=== PATIENT | female | born 1955 | race Caucasian/White ===

== ENCOUNTER 2020-05-30 14:08 | Emergency (ER) | payer MEDICARE ==
[2020-05-30 14:51] LABS: CHLORIDE,CL 107 mmol/L (98-107); SODIUM,NA 144 mmol/L (136-145)
[2020-05-30] MEDS ORDERED: Ondansetron 4 MG Tab.DIS PO ONE (15:09)
[2020-05-30] MEDS ORDERED: Pantoprazole 40 MG Tab.CR PO ONE (15:09)
[2020-05-30] MEDS ORDERED: LORazepam 0.5 MG Tab PO ONE (15:09)
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
== END 2020-05-30 16:05 | disposition home or self-care (01) ==
LOC: LL.ED 14:08
DX: R11.2 Nausea with vomiting, unspecified (principal); M41.9 Scoliosis, unspecified; F17.210 Nicotine dependence, cigarettes, uncomplicated
CPT/HCPCS: 36415; 74022; 80053; 81001; 82150; 83605; 83690; 83735; 84484; 85025; 99283; 99284; A9270-GY

== ENCOUNTER 2020-12-14 09:49 | Day surgery (SDC) | payer MEDICARE ==
[~2020-12-14 09:49] MED LIST: Sodium Chloride 0.9% 10 ML Syringe FLUSH PRN
[2020-12-14] MEDS: Lactated Ringers 1,000 ML IV SCH (10:34)
[2020-12-14] MEDS ORDERED: Midazolam 1 MG/ML 2 ML SDV ONE ×2 (10:44→11:37)
[2020-12-14] MEDS ORDERED: Propofol 200 MG/20 ML SDV ONE ×2 (10:44→11:37)
--- NOTE | 2020-12-14 11:28 | PCM.PN ---
- General Info Date of Service: 12/14/20 - Review of Systems Systems Review Comment:: 65-year-old female referred by Sheba Glez for colonoscopy. Patient has never had a prior colonoscopy. She did recently have a positive Cologuard test. She denies any recent change in bowel pattern. She is medically stable to proceed today. Her recent history and physical is reviewed and no significant changes are noted. I have discussed the proposed colonoscopy with the patient. Risks such as but not limited to bleeding and GI injury reviewed. She agrees to proceed. - Patient Data Vitals - Most Recent: Last Vital Signs Temp 98.1 F 12/14/20 10:34 Pulse 79 12/14/20 10:34 Resp 18 12/14/20 10:34 BP 111/60 12/14/20 10:34 Pulse Ox 98 12/14/20 10:34 Weight - Most Recent: 76.204 kg Med Orders - Current: Current Medications Lactated Ringer's (Ringers, Lactated) 1,000 mls @ 125 mls/hr IV ASDIRECTED KELSEY Last Admin: 12/14/20 10:34 Dose: 125 mls/hr Documented by: Sodium Chloride (Saline Flush) 10 ml FLUSH ASDIRECTED PRN PRN Reason: Keep Vein Open Discontinued Medications Midazolam HCl (Versed 1 Mg/Ml) Confirm Administered Dose 2 mg .ROUTE .STK-MED ONE Stop: 12/14/20 10:45 Propofol (Diprivan 20 Ml) Confirm Administered Dose 400 mg .ROUTE .STK-MED ONE Stop: 12/14/20 10:45 Sepsis Event Note - Focused Exam Vital Signs: Vital Signs Temp Pulse Resp BP Pulse Ox 12/14/20 10:34 98.1 F 79 18 111/60 98 - Problem List Review Problem List Initiated/Reviewed/Updated: Yes - My Orders Last 24 Hours: My Active Orders 12/14/20 09:45 Patient Status [ADT] Routine Peripheral IV Care [RC] . DIRECTED Verify Patient Consent Obtain [RC] ASDIRECTED Lactated Ringers [Ringers, Lactated] 1,000 ml IV ASDIRECTED Sodium Chloride 0.9% [Saline Flush] 10 ml FLUSH ASDIRECTED PRN Peripheral IV Insertion Adult [OM.PC] Routine - Assessment Assessment:: Positive Cologuard test - Plan Plan:: Colonoscopy
--- NOTE | 2020-12-14 12:23 | PCM.OPNOTE ---
- General Post-Op/Procedure Note Date of Surgery/Procedure: 12/14/20 Operative Procedure(s): Colonoscopy with polypectomy Findings: Rectal polyps Moderate sigmoid Diverticulosis Small external hemorrhoids Pre Op Diagnosis: Positive Cologuard Post-Op Diagnosis: Rectal Polps. Sigmoid Diverticulosis. Hemorroids Anesthesia Technique: MAC Primary Surgeon: Artie Cifuentes Pathology: Rectal Polyp EBL in mLs: 0 Complications: None Condition: Good
--- NOTE | 2020-12-14 14:15 | OR ---
Date of Procedure: 12/14/2020 PREOPERATIVE DIAGNOSIS: Positive Cologuard. POSTOPERATIVE DIAGNOSES: Rectal polyps, sigmoid diverticulosis, and hemorrhoids. OPERATIONS PERFORMED: Colonoscopy with polypectomy. INDICATIONS FOR SURGERY: This is a 65-year-old female who has never had a prior colonoscopy, is referred for this exam today. She was recently noted to have a positive Cologuard test. FINDINGS: The patient had a rectal polyp 5 cm from the anal verge. This is 6 mm in size. She also had several other small polyps of 2 to 3 mm in size in the rectum. No other polyps were seen in the colon. She has a moderate degree of sigmoid diverticulosis, which does not appear to be acutely inflamed or otherwise complicated. There are also small external hemorrhoids. PROCEDURE IN DETAIL: The patient was taken to the operating room. She was given intravenous sedation, and with her in the left lateral decubitus position, digital rectal exam was performed showing no rectal masses. The Olympus colonoscope was inserted into the rectum and retroflexed examination of the rectal canal was performed. In the rectum, the above-described larger polyp was identified. This was removed with a cautery snare and retrieved into a polyp trap. Cautery was then used to ablate the other small polyps seen in the lining of the rectum with cautery. The scope was then carefully advanced under direct visualization through the entire length of the colon until the cecum was reached. Cecal acquisition was confirmed by noting the normal internal cecal anatomy including the appendiceal orifice and the ileocecal valve. After examining the cecum, the scope was slowly withdrawn sequentially re-examining the colonic segments until the entire colon and rectum had been fully examined. The scope was removed, and the patient was taken from the operating room in satisfactory condition. ESTIMATED BLOOD LOSS: Zero. COMPLICATIONS: None. PROGNOSIS: Good. CRIS Cifuentes MD /[id number]
== END 2020-12-14 13:10 | disposition home or self-care (01) ==
LOC: LL.SDS 09:49
PROVIDERS: ATTEND Surgery
DX: K62.1 Rectal polyp (principal); K57.30 Diverticulosis of large intestine without perforation or abscess without bleeding; F17.210 Nicotine dependence, cigarettes, uncomplicated; Z01.812 Encounter for preprocedural laboratory examination; Z20.822 Contact with and (suspected) exposure to COVID-19; Z79.899 Other long term (current) drug therapy; Z90.49 Acquired absence of other specified parts of digestive tract
CPT/HCPCS: 00812; 88305; J2250; J2704; J7120; U0002